=== PATIENT | female | born 1965 | race American Indian/Alaskan Native ===

== ENCOUNTER 2021-02-26 18:23 | Emergency (ER) | payer OTHER ==
[2021-02-27 02:07] VITALS: BP 124/88
[2021-02-27] MEDS ORDERED: traMADol 50 MG TAB PO ONE (02:29)
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
== END 2021-02-27 04:15 | disposition home health service (06) ==
LOC: ED 18:23
DX: M54.2 Cervicalgia (principal); M79.18 Myalgia, other site; V89.2XXA Person injured in unspecified motor-vehicle accident, traffic, initial encounter; Y93.89 Activity, other specified; Y92.89 Other specified places as the place of occurrence of the external cause; Y99.8 Other external cause status
CPT/HCPCS: 72040; 99283